=== PATIENT | female | born 1980 | race Caucasian/White ===

== ENCOUNTER 2018-11-16 08:31 | Inpatient (IN) | payer BC ==
[2018-11-16] MEDS ORDERED: Lactated Ringers 1000 ML Bag* 1,000 ML IV ONE ×2 (09:03→12:43)
[2018-11-16] MEDS ORDERED: Buffered Lidocaine 1% SYRIN* 1 ML/SYRINGE INTRADERM ONE (09:03)
[2018-11-16] MEDS ORDERED: Nalbuphine* 10 MG/ML 1 ML VIAL IV ONE (09:03)
[2018-11-16] MEDS ORDERED: Promethazine INJ(RESTRICTED)* 25 MG/ML 1 ML VIAL IV ONE (09:03)
--- NOTE | 2018-11-16 09:11 | HP ---
General Information - Reason for Visit Contractions - General Information Maternal Age: 38 Grav: 2 Para: 1 SAB: 0 IEA: 0 Estimated Due Date: 11/11/18 Determined By: LMP Maternal Blood Type and Rh: A Positive - Results this Serology/RPR Result: Non-Reactive Rubella Result: Immune HBsAg Result: Negative HIV Result: Negative GBS Culture Result: Negative Past Medical History Delivery History: Hx Complicated Vaginal Delivery Delivery History Comment: Vacuum delivery after 5-6 hrs pushing. Delivered in [place] Pertinent Past Medical History: See Records Past Medical History Comment: Anxiety, no medications Pertinent Past Surgical History: See Records Past Surgical History Comment: 1997 - L ACL repair 2005 - R ACL repair 2018 - Ganglion cyst, R wrist Pertinent Family History: See Records Family History Comment: Mother: Hypertension - Antepartal Records Antepartal Records: Reviewed, Complicated by: - AMA, normal NIPT. Platelet count 116 at 28 wks, 112 at 37 wks Review of Systems Constitutional: Uncomfortable CV Complaint: No Respiratory: Shortness of Breath: No Gastrointestinal: No Nausea/Vomiting, Normal Bowel Movement Genitourinary: No Dysuria, No Bleeding, No Leaking Fluid Musculoskeletal: Contractions Neurological: No Headache, No Visual Changes Movement: Normal Exam B/P: 106/67, P: 68, R: 16, R: 98.1 - Measurements Height: 5 ft 2 in Weight: 143 lb Weight in lbs: [id number] Body Mass Index (BMI): 26.2 Pre- Weight: 120 lb Weight Gained This : 23 lbs and 0 ozs - Exam Breast: Breast Exam Deferred CVA: No CVA Tenderness Extremities: No Edema Heart: Normal Rhythm/Heart Sounds HEENT: No Significant Findings Lungs: Clear Bilaterally Reflexes: DTR 2+ - Abdominal Exam Abdomen Exam: Non-Tender, Fundal Height Consistent with Dates - Ultrasound/Biophysical Profile Ultrasound Status: Not Done Targeted Exam Findings See L&D Outpatient Visit Provider Note for Findings: N/A Estimated Weight: 7 lbs by jose'rain Cervical Exam: 3cm, 4cm Effacement: 80% Station: -2 Presenting Part: Vertex Membrane Status: Intact Bleeding/Discharge: None EFM Findings - External Monitor Findings Baseline Heart Rate: 150 External Monitor Findings: Accelerations Present, No Pattern of Variable or Late Decelerations, Variability Moderate, Baseline Stable Contractions: Irregular, Mild, Moderate, 45-90 Seconds Contraction Frequency: 8-10 mins Assessment/Plan - Assessment A: IUP at 40 5/7 weeks Category I FHR, no evidence of metabolic acidemia GBS negative Early labor P: Admit to inpatient Plans epidural eventually for pain management Encouraged to eat and drink, change position/activity frequently for now Reassess PRN, anticipate SVB - Plan Plan: Admit - Anticipate Vaginal Delivery - Date/Time of Admission Date of Admission: 11/16/18 Time of Admission: 09:00
[2018-11-16] MEDS ORDERED: Lactated Ringers 1000 ML Bag* 1,000 ML IV SCH ×3 (10:00→19:00)
[2018-11-16 11:23] LABS: ABS Eosinophils 0.1 10^3/ul (0-0.6); ABS Lymphocytes 1.4 10^3/ul (1.0-4.8); ABS Monocytes 0.6 10^3/ul (0-0.8); ABS Neutrophils 7.6 10^3/ul (1.5-7.7); Eosinophil % 0.6 %; Hematocrit 36 % (35-47); Hemoglobin 12.4 g/dL (12.0-16.0); Lymphocyte % 14.5 %; Mean Corpuscular HGB Conc 35 g/dL (31-36); Mean Corpuscular Hemoglobin 31 pg (27-31); Mean Corpuscular Volume 90 fL (80-97); Mean Platelet Volume 9.7 fL (7.4-10.4); Platelet Count 117 10^3/uL (150-450); Red Blood Count 3.97 10^6 /uL (3.70-4.87); Red Cell Distribution Width 13 % (10-15); White Blood Count 9.7 10^3/uL (3.5-10.8)
--- NOTE | 2018-11-16 11:32 | PN ---
Progress Note - Progress Note Date of Service: 11/16/18 Note: S: Reports feeling more uncomfortable, UCs getting stronger and seem closer together. Denies VB or LOF. Requesting epidural. O: B/P: 104/64, P: 61, R: 16, T: 98.1 FHR: baseline 135, moderate variability, +accelerations, no decelerations UCs: q 3-6 min, moderate to palpation VE: 5.5/90/-2. Intact A: IUP at 40 5/7 weeks Category I FHR, no evidence of metabolic acidemia Active labor P: Dr. Chance paged; states she will be here by 1200. IV placed, bolus infusing, labs back. Plt count: 117, stable with previous value Reassess PRN Anticipate SVB
[2018-11-16] MEDS ORDERED: OBEPIDURAL* 250 ML EPIDURAL ONE (11:39)
[2018-11-16 11:42] LABS: Urine Benzodiazepine Screen None Detected (None Detect); Urine Opiates Screen None Detected (None Detect)
[2018-11-16] MEDS ORDERED: Phenylephrine 40 MCG/ML SYRINGE IV PUSH PRN ×2 (12:43)
[2018-11-16] MEDS ORDERED: Sodium Citrate/Citric Acid* 15 ML UDC PO PRN (12:43)
[2018-11-16] MEDS ORDERED: OBEPIDURAL* 250 ML EPIDURAL SCH (13:00)
--- NOTE | 2018-11-16 14:25 | PN ---
Progress Note - Progress Note Date of Service: 11/16/18 Note: S: Overall feeling more comfortable s/p CEI placement. Beginning to feel some crampy right-sided low back pain O: B/P: 118/58, P: 72, R: 18, T: 98.8 FHR: baseline 130, moderate variability, +accelerations, no decelerations UCs: q 2-4 min, moderate to firm to palpation VE: 9/100/-1, AROM to clear fluid A: IUP at 40 5/7 weeks Category I FHR, no evidence of metabolic acidemia Active labor P: Repositioned in left lateral lunge position for relief of low back pressure Await urge to push Reassess PRN Anticipate SVB
[2018-11-16] MEDS ORDERED: Oxytocin in LR* 20 UNITS/1,000 ML BAG IVPB SCH (17:00)
[2018-11-16] MEDS ORDERED: Glycerin ADULT SUPP PR PRN (18:23)
[2018-11-16] MEDS ORDERED: Lidocaine 1.5% EPI 1:200,000* 30 ML SDV ONE (18:29)
--- NOTE | 2018-11-16 18:34 | PROCNOTE ---
[facility] OB: Delivery Note - Delivery A Date of : 11/16/18 Time of : 17:42 [place] Sex: Female Weight at : 7 lb 5 oz Score 1 Minute: 9 Score 5 Minutes: 9 Gestational Age in Weeks and Days at Delivery: 40 Weeks and 5 Days Delivery Method: Spontaneous Vaginal Labor: Spontaneous Did Patient attempt ?: N/A, No Previous Amniotic Fluid: Clear Estimated Blood Loss: 300 Anesthesia/Analgesia: CEI for Labor Anesthesia Comment: Dr. Chance Delivered By: Johanny York - Nursery Level of Nursery: Regular/Bedside - Perineum Perineal Injury: 2nd Degree Perineal Injury Comment: with left labial extension Perineal Repair: By Delivering Practioner - with 3-0 vicryl rapide under 1% lidocaine infiltration - Events Delivery Events of Note: Pitocin During Labor, Supplemental O2 to Mother - Additional Delivery Notes Additional Delivery Notes: at 40 5/7 weeks in spontaneous labor received CEI per preference with moderate relief. AROM to clear fluid at 1415, found to be complete and complete. Began pushing at 1450 with slow descent. crowned slowly OA to VANNA with compound left hand, shoulders followed easily with next push at 1742. Female infant vigorous, spontaneous cry and HR >110, delivered to maternal abdomen. Apgars 9 and 9. Cord was doubly clamped and cut by RN once pulsation ceased, about 3 minutes. True knot noted in cord. Spontaneous placenta at 1750, homar side first, found to be intact. Fundus firm with massage. Pitocin running, bleeding slowed. Perineum and vagina carefully inspected, 2nd degree perineal laceration noted with left labial extension, repaired as above. Mother and infant stable at time of note, feeding plan is breast. EBL = 300 cc
[2018-11-16] MEDS: Ibuprofen TAB* 600 MG PO SCH (19:17)
[2018-11-16] MEDS: Witch Hazel PAD* JAR TOPICAL PRN (19:18)
[2018-11-16] MEDS: Dibucaine 1% 28.35 GM TUBE PR PRN (19:18)
[2018-11-16] MEDS: Docusate CAP* 100 MG PO SCH (20:55)
[2018-11-16] MEDS ORDERED: Simethicone TAB* 80 MG TAB.CHEW PO SCH (21:00)
[2018-11-17] MEDS: Ibuprofen TAB* 600 MG PO SCH ×3 (04:52→17:56)
[2018-11-17 06:49] LABS: ABS Lymphocytes 2.2 10^3/ul (1.0-4.8); ABS Monocytes 1.3 10^3/ul (0-0.8); ABS Neutrophils 12.9 10^3/ul (1.5-7.7); Eosinophil % 0.3 %; Hematocrit 27 % (35-47); Hemoglobin 9.4 g/dL (12.0-16.0); Lymphocyte % 13.4 %; Mean Corpuscular HGB Conc 35 g/dL (31-36); Mean Corpuscular Hemoglobin 32 pg (27-31); Mean Corpuscular Volume 90 fL (80-97); Mean Platelet Volume 9.5 fL (7.4-10.4); Nucleated Red Blood Cells % 0.1; Platelet Count 104 10^3/uL (150-450); Red Blood Count 2.99 10^6 /uL (3.70-4.87); Red Cell Distribution Width 14 % (10-15); White Blood Count 16.4 10^3/uL (3.5-10.8)
[2018-11-17] MEDS: Acetaminophen TAB* 325 MG PO PRN ×3 (08:39→20:11)
[2018-11-17] MEDS: Dibucaine 1% 28.35 GM TUBE PR PRN (08:39)
[2018-11-17] MEDS: Ferrous Gluconate TAB* 324 MG TAB PO SCH ×2 (08:39→20:09)
[2018-11-17] MEDS: Witch Hazel PAD* JAR TOPICAL PRN (08:39)
[2018-11-17] MEDS: Docusate CAP* 100 MG PO SCH ×3 (08:39→20:09)
[2018-11-18] MEDS: Ibuprofen TAB* 600 MG PO SCH ×2 (01:00→04:29)
[2018-11-18] MEDS: Acetaminophen TAB* 325 MG PO PRN ×2 (04:28→08:17)
[2018-11-18 08:06] VITALS: BP 97/66
[2018-11-18] MEDS: Ferrous Gluconate TAB* 324 MG TAB PO SCH (08:17)
[2018-11-18] MEDS: Docusate CAP* 100 MG PO SCH (08:17)
== END 2018-11-18 12:50 | disposition home or self-care (01) | DRG 560 ==
LOC: MCHOBOUT 08:31 → MCHOB 09:02
PROVIDERS: ADMIT Midwife; ATTEND Midwife
PROC: 10E0XZZ Delivery of Products of Conception, External Approach (ICD-10-PCS; principal; 2018-11-16)
PROC: 10907ZC Drainage of Amniotic Fluid, Therapeutic from Products of Conception, Via Natural or Artificial Opening (ICD-10-PCS; 2018-11-16)
PROC: 0KQM0ZZ Repair Perineum Muscle, Open Approach (ICD-10-PCS; 2018-11-16)
DX: O48.0 Post-term pregnancy (principal); Z37.0 Single live birth; O70.1 Second degree perineal laceration during delivery; O69.2XX0 Labor and delivery complicated by other cord entanglement, with compression, not applicable or unspecified; O90.81 Anemia of the puerperium; D64.9 Anemia, unspecified; Z3A.40 40 weeks gestation of pregnancy
CPT/HCPCS: 36415; 80307; 85025; 86850; 86900; 86901; A9270-GY

== ENCOUNTER 2019-05-31 11:41 | Emergency (ER) | payer BC, OTHER ==
--- NOTE | 2019-05-31 12:25 | ED ---
HPI Febrile Illness - HPI Summary HPI Summary: Pt is an otherwise healthy 38-year-old female presenting to the ED with concern for fever 3 days. Patient states she awoke on with a fever, this was controlled with Tylenol. Account Sunday and again today she was having fevers throughout the day. She has been taking Tylenol with good relief. She denies any other symptoms. She did have 80 Covid test yesterday, this pending results. Denies any cough, congestion, sweats, chills, abdominal pain, nausea, vomiting, diarrhea, back pain or any urinary symptoms. She states she has had flu delivery only and no contact with anyone outside the home x 5-6 weeks except for Sunday (2 days prior to sxs onset) when she brought her 6 mo old to a well visit. She endorsed wearing a mask. Noone in house is sick. She denies other sxs including lethargy. Highest at home 102.8 last night. No fevers this morning. - History of Current Complaint Chief Complaint: EDFever Time Seen by Provider: 05/31/19 11:48 Hx Obtained From: Patient Onset/Duration: Started Hours Ago Timing: Constant Temperature: 102.8 F Initial Severity: Moderate Current Severity: Moderate Pain Intensity: 2 Pain Scale Used: 0-10 Numeric Aggravating Factors: Nothing Alleviating Factors: Nothing Associated Signs and Symptoms: Negative - Risk Factors Serious Bacterial Infection Risk Factors: Negative - Allergy/Home Medications Allergies/Adverse Reactions: Allergies Allergy/AdvReac Type Severity Reaction Status Date / Time No Known Allergies Allergy Verified 05/31/19 11:50 Home Medications: Home Medications Acetaminophen TAB* [Tylenol TAB*] 650 mg PO Q4H PRN tab 11/18/18 [Rx] Norethindrone [Deblitane] 0.35 mg PO DAILY 05/31/19 [History Confirmed 05/31/19] PMH/Surg Hx/FS Hx/Imm Hx Previously Healthy: Yes - Immunization History Hx Pertussis Vaccination: No Immunizations Up to Date: Yes Infectious Disease History: No Infectious Disease History: Denies: Traveled Outside the [place] in Last 30 Days - Social History Occupation: Employed Full-time Lives: With Family Alcohol Use: None Hx Substance Use: No Substance Use Type: Reports: None Smoking Status (MU): Never Smoked Tobacco Review of Systems Positive: Fever, Chills, Fatigue, Skin Diaphoresis Positive: Dental Pain Negative: Palpitations, Chest Pain Negative: Shortness Of Breath, Cough Genitourinary: Negative Positive: no symptoms reported, see HPI Negative: Arthralgia, Myalgia Negative: Rash, Bruising All Other Systems Reviewed And Are Negative: Yes Physical Exam Triage Information Reviewed: Yes Vital Signs On Initial Exam: Initial Vitals Temp Pulse Resp BP Pulse Ox 97 F 96 16 130/91 99 05/31/19 11:48 05/31/19 11:48 05/31/19 11:48 05/31/19 11:48 05/31/19 11:48 Vital Signs Reviewed: Yes Appearance: Positive: Well-Appearing, Well-Nourished Skin: Positive: Warm, Skin Color Reflects Adequate Perfusion Head/Face: Positive: Normal Head/Face Inspection Eyes: Positive: EOMI, MARA, Conjunctiva Clear Dental: Positive: Other - right upper maxillary area Respiratory/Lung Sounds: Positive: Clear to Auscultation, Breath Sounds Present Cardiovascular: Positive: RRR, Pulses are Symmetrical in both Upper and Lower Extremities Musculoskeletal: Positive: Normal, Strength/ROM Intact Neurological: Positive: Speech Normal Psychiatric: Positive: Normal, Affect/Mood Appropriate Procedures - Sedation Patient Received Moderate/Deep Sedation with Procedure: No Diagnostics - Vital Signs Vital Signs Temp Pulse Resp BP Pulse Ox 05/31/19 11:48 97 F 96 16 130/91 99 - Laboratory Result Diagrams: 05/31/19 12:40 05/31/19 12:40 Lab Statement: Any lab studies that have been ordered have been reviewed, and results considered in the medical decision making process. Course/Dx - Course Course Of Treatment: Labs obtained. [place] obtained. UA: Negative for any acute findings. Patient appears well. VS stable. No fever. Lungs CTA, RRR. COVID pending. Pt has not symptoms aside from fever x 2 days. Labs shows leukopenia without neutropenia. Elevated CRP. Pt continues to be afebrile in the ED. F/ u with PCP. Return to the ED for worsening symptoms. Discussed with Dr. Rhoades. As pt stable, asympatomatic with no clear indication of source of infection, pt able to be DC'd home at this time. - Febrile Illness Differential Diagnoses: Fever of Unknown Origin, Other: - elevated crp, viral syndrome - Diagnoses Provider Diagnoses: Fever - Critical Care Time Critical Care Statement: Critical care time is provided exclusive of any time spent performing procedures. Discharge ED - Sign-Out/Discharge Documenting (check all that apply): Patient Departure - Discharge Plan Condition: Stable Disposition: HOME Patient Education Materials: Fever in Adults (ED) Referrals: No Primary Care Phys,NOPCP [Primary Care Provider] - Additional Instructions: Continue to take tylenol and ibuprofen Tylenol 650mg or 500mg four times daily Ibuprofen 600mg four times daily You should be taking either one every 3 hours intermittently for fevers or body aches Please follow up with your PCP next week If any symptoms become worse, please return to the ED - Billing Disposition and Condition Condition: STABLE Disposition: Home
[2019-05-31 13:12] LABS: Urine Appearance Clear; Urine Bilirubin Negative (Negative); Urine Blood 1+ (Negative); Urine Color Straw; Urine Glucose Negative (Negative); Urine Ketones Negative (Negative); Urine Nitrite Negative (Negative); Urine Protein Negative (Negative); Urine Specific Gravity 1.004 (1.010-1.030); Urine Urobilinogen Negative (Negative)
[2019-05-31 13:14] LABS: Urine Bacteria 1+ (Absent); Urine Red Blood Cell Absent (Absent); Urine Squamous Epithelial Cell Present (Absent); Urine White Blood Cell Trace(0-5/hpf) (Absent)
[2019-05-31 13:24] LABS: ABS Lymphocytes 0.7 10^3/ul (1.0-4.8); ABS Monocytes 0.2 10^3/ul (0-0.8); ABS Neutrophils 1.6 10^3/ul (1.5-7.7); Albumin 3.9 g/dL (3.2-5.2); Albumin/Globulin Ratio 1.3 (1-3); BUN/Creatinine Ratio 14.1 (8-20); C Reactive Protein 42.35 mg/L (<8.01); EGFR African American 126.3 (>60); EGFR Non-African American 104.4 (>60); Eosinophil % 0.1 %; Globulin 2.9 g/dL (2-4); Hematocrit 39 % (35-47); Hemoglobin 13.3 g/dL (12.0-16.0); Lymphocyte % 26.9 %; Mean Corpuscular HGB Conc 35 g/dL (31-36); Mean Corpuscular Hemoglobin 28 pg (27-31); Mean Corpuscular Volume 81 fL (80-97); Mean Platelet Volume 8.2 fL (7.4-10.4); Nucleated Red Blood Cells % 0.5; Platelet Count 94 10^3/uL (150-450); Potassium 3.6 mmol/L (3.5-5.0); Red Blood Count 4.77 10^6 /uL (3.70-4.87); Red Cell Distribution Width 12 % (10-15); Total Bilirubin 0.6 mg/dL (0.2-1.0); Total Protein 6.8 g/dL (6.4-8.9); White Blood Count 2.5 10^3/uL (3.5-10.8)
[2019-05-31 14:24] VITALS: BP 103/67
[2019-05-31 14:37] LABS: Influenza A Molecular Negative (Negative); Influenza B Molecular Negative (Negative)
== END 2019-05-31 14:05 | disposition home or self-care (01) ==
LOC: ED 11:41
DX: R50.9 Fever, unspecified (principal)
CPT/HCPCS: 36415; 80053; 81003; 81015; 85025; 85060; 86140; 86308; 87077; 87086; 99284